=== PATIENT | male | born 1960 | race Caucasian/White ===

== ENCOUNTER 2017-04-10 07:48 | Emergency (ER) | payer MEDICAID ==
[~2017-04-10] VITALS: Ht 167.6 cm; Wt 56.3 kg
[2017-04-10 07:51] VITALS: Ht 167.6 cm; Wt 56.3 kg
[2017-04-10 08:40] LABS: PLATELET COUNT 214 x10^3mcL (130-400); RED CELL DISTRIBUTION WIDTH 13.1 % (11.5-14.5)
[2017-04-10 08:55] LABS: CALCIUM 9.1 mg/dL (8.5-10.1); CARBON DIOXIDE 25.3 mmol/L (21-32); CHLORIDE SERUM 103 mmol/L (98-107); CREATININE SERUM 0.9 mg/dL (0.7-1.3); GFR1 > 60 mL/min; GLUCOSE SERUM 104 mg/dL (74-106); POTASSIUM SERUM 4.6 mmol/L (3.5-5.1); SODIUM SERUM 140 mmol/L (136-145)
[2017-04-10 09:01] LABS: ALBUMIN 3.7 g/dL (3.4-5.0); ALKALINE PHOSPHATASE 99 U/L (46-116); ALT/SGPT 47 U/L (16-63); AST/SGOT 32 U/L (15-37); BILIRUBIN TOTAL 1.1 mg/dL (0.20-1.00); CHOLESTEROL 195 mg/dL (<200); CHOLESTEROL/HDL RATIO 2.6; HDL CHOLESTEROL 75 mg/dL (40-60); LIPASE 90 IU/L (73-393); TOTAL PROTEIN, SERUM 7.4 g/dL (6.4-8.2); TRIGLYCERIDES 156 mg/dL (<150)
[2017-04-10 09:09] LABS: microscopic required? YES; urine erythrocyte 1+ (NEGATIVE)
[2017-04-10 09:14] LABS: AMPHETAMINE QUAL UR NONE DETECTED (NEG <=1000)
[2017-04-10 11:04] VITALS: BP 129/91
[2017-04-10 14:21] LABS: T3 TOTAL 1.01 ng/mL
[2017-04-10 17:32] LABS: FREE T4 1.13 ng/dL (0.76-1.46); FREE THYROXINE INDEX 2.6 ug/dL (1.4-4.5); T4(THYROXINE) 6.6 ug/dL (4.7-13.3)
== END 2017-04-10 11:04 | disposition home or self-care (01) ==
LOC: EDBD 07:48 → ED 07:48
PROVIDERS: Specialist
DX: R04.0 Epistaxis (principal)
CPT/HCPCS: 83880; 84439; G0480; Q0092

== ENCOUNTER 2017-04-12 20:53 | Emergency (ER) | payer MEDICAID ==
[~2017-04-12] VITALS: Ht 167.6 cm; Wt 56.2 kg
[2017-04-12 22:33] VITALS: BP 125/76
== END 2017-04-12 22:33 | disposition home or self-care (01) ==
LOC: ED 20:53
DX: R04.0 Epistaxis (principal)